=== PATIENT | female | born 1995 | race Caucasian/White ===

== ENCOUNTER 2016-12-03 18:57 | Emergency (ER) | payer OTHER ==
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
--- NOTE | 2016-12-03 20:01 | ED ORDER SUMMARY ---
..... Patient: JACKSON MARTE OrderSheet [facility] VisitID: [id number] [address] [place] [address] 21y, F Registration Date/Time: 12/03/2016 ORDER SHEET Weight: 165.5 kg (stated) Allergies: No Known Drug Allergy GENERAL ORDERS: MEDICATION ORDERS: Toradol IM 60 mg (NOW) (19:40 12/03/2016 HBivens A.R.N.P.) (Ack 19:40 HSoule) (19:52 HSoule) IV FLUIDS: ORDER SHEET NOTES: [Electronically signed by Shira DennyR.N.P. (22:28 12/03/2016)] [Electronically signed by Brando Mariano R.N. (23:37 12/03/2016)] [Electronically locked/signed by Brando Mariano R.N. (23:37 12/03/2016)]
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
--- NOTE | 2016-12-03 20:01 | ED ORDER SUMMARY ---
..... Patient: JACKSON MARTE OrderSheet [facility] VisitID: [id number] [address] [place] [address] 21y, F Registration Date/Time: 12/03/2016 ORDER SHEET Weight: 165.5 kg (stated) Allergies: No Known Drug Allergy GENERAL ORDERS: MEDICATION ORDERS: Toradol IM 60 mg (NOW) (19:40 12/03/2016 HBivens A.R.N.P.) (Ack 19:40 HSoule) (19:52 HSoule) IV FLUIDS: ORDER SHEET NOTES: [Electronically signed by Shira DennyR.N.P. (22:28 12/03/2016)] [Electronically signed by Brando Mariano R.N. (23:37 12/03/2016)] [Electronically locked/signed by Brando Mariano R.N. (23:37 12/03/2016)]
--- NOTE | 2016-12-03 23:37 | ED MAR SUMMARY ---
..... Medication Administration Record [facility] [address] [place] [address] Patient: JACKSON MARTE Visit ID: [id number] 21y, F Weight: 165.5 kg Height/Length: 65 in BMI: 60.8 ALLERGIES: No Known Drug Allergy Given 19:42 12/03/2016 Radha Roy, Medication Administered: TORADOL [IM] (KETOROLAC TROMETHAMINE), Dose: 60 mg IM. Medication Ordered: Toradol IM 60 mg (NOW).
--- NOTE | 2016-12-03 23:37 | ED MED RECONCILIATION SUMMARY ---
Patient: JACKSON MARTE Medication Reconciliation Report [facility] VisitID: [id number] [address] [place] [address] 21y, F Registration Date/Time: 12/03/2016 Weight: 165.5 kg Height/Length: 65 in. BMI: 60.8 ALLERGIES: No Known Drug Allergy The patient's Home Medications are listed below: THE FOLLOWING MEDICATIONS NEED TO BE RECONCILED: Adderall (10mg) Oral Gabapentin (PHN) Oral Tylenol Oral The source(s) of the original Home Medication information: Not obtained. The following Medications were given to the patient in the Emergency Department: Toradol [IM] IM 60 mg, administered: 12/03/2016 7:42:00 PM The following Medications were prescribed to the patient: Flexeril 10 mg: Take 1 orally every 8 hours as needed for muscle spasm. Dispense twenty (20). No refills. Substitution is permissible. -- Shira Denny A.R.N.P. Ultram 50 mg tablets: take 1-2 orally every 6 hours as needed for pain. Dispense twenty (20). No refills. Substitution is permissible. -- Shira Denny A.R.N.P.
--- NOTE | 2016-12-03 23:37 | ED MAR SUMMARY ---
..... Medication Administration Record [facility] [address] [place] [address] Patient: JACKSON MARTE Visit ID: [id number] 21y, F Weight: 165.5 kg Height/Length: 65 in BMI: 60.8 ALLERGIES: No Known Drug Allergy Given 19:42 12/03/2016 Radha Roy, Medication Administered: TORADOL [IM] (KETOROLAC TROMETHAMINE), Dose: 60 mg IM. Medication Ordered: Toradol IM 60 mg (NOW).
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
--- NOTE | 2016-12-03 23:37 | ED MED RECONCILIATION SUMMARY ---
Patient: JACKSON MARTE Medication Reconciliation Report [facility] VisitID: [id number] [address] [place] [address] 21y, F Registration Date/Time: 12/03/2016 Weight: 165.5 kg Height/Length: 65 in. BMI: 60.8 ALLERGIES: No Known Drug Allergy The patient's Home Medications are listed below: THE FOLLOWING MEDICATIONS NEED TO BE RECONCILED: Adderall (10mg) Oral Gabapentin (PHN) Oral Tylenol Oral The source(s) of the original Home Medication information: Not obtained. The following Medications were given to the patient in the Emergency Department: Toradol [IM] IM 60 mg, administered: 12/03/2016 7:42:00 PM The following Medications were prescribed to the patient: Flexeril 10 mg: Take 1 orally every 8 hours as needed for muscle spasm. Dispense twenty (20). No refills. Substitution is permissible. -- Shira Denny A.R.N.P. Ultram 50 mg tablets: take 1-2 orally every 6 hours as needed for pain. Dispense twenty (20). No refills. Substitution is permissible. -- Shira Denny A.R.N.P.
== END 2016-12-03 20:10 | disposition home or self-care (01) ==
LOC: ED SRH 18:57
DX: S16.1XXA Strain of muscle, fascia and tendon at neck level, initial encounter (principal); S39.012A Strain of muscle, fascia and tendon of lower back, initial encounter; V53.6XXA Passenger in pick-up truck or van injured in collision with car, pick-up truck or van in traffic accident, initial encounter; Y93.I9 Activity, other involving external motion; Y92.410 Unspecified street and highway as the place of occurrence of the external cause; Y99.9 Unspecified external cause status; K21.9 Gastro-esophageal reflux disease without esophagitis; F17.200 Nicotine dependence, unspecified, uncomplicated

== ENCOUNTER 2017-03-29 17:47 | Emergency (ER) | payer OTHER ==
--- NOTE | 2017-03-29 19:30 | ED CLINICAL REPORT ---
Clinical Report - Physicians/Mid Levels [facility] [address] [place] [address] 03/29/2017 17:48 [id number] Time Seen: 1800May 2016. Arrived- By private vehicle. Historian- patient. HISTORY OF PRESENT ILLNESS Chief Complaint: Injury to the right hand and index finger and right middle finger. The injury happened just prior to arrival. The patient sustained a crush injury. Patient is experiencing severe pain. Pain is not mild. Patient denies injury to the head. ( Patient sustained injury to the right hand from crushing injury between 2 metal bars. Denies prior injury to the area. Reports minor bleeding. Reports pain with any movement. No medications for respiratory arrival.). REVIEW OF SYSTEMS The patient sustained a laceration. She has had tingling, and numbness. All systems otherwise negative, except as recorded above. PAST HISTORY The patient's dominant hand is the right. She has not had a prior injury to the same area. Tetanus immunization status is unknown. SOCIAL HISTORY Smoker- current status unknown. Alcohol use. No drug use. ADDITIONAL NOTES The nursing notes have been reviewed. PHYSICAL EXAM Vital Signs: 03/29/2017 18:03 BP: 140/69. HR: 107. RR: 20. O2 saturation: 99%. Temp: 98.7 F. Appearance: Alert. Head: Head atraumatic. Respiratory: No respiratory distress. Breath sounds normal. Extremities: Dorsal right hand: tenderness and swelling (Central distal hand over the second and third MCP, extending into the proximal phalanx of the thid/ second, over the PIP, non-gaping puncture wound, non bleeding. Full range of motion of the index and middle finger with good strength.). No wrist injury. Neuro, Vascular and Tendons: Vascular status intact. Motor intact. Neuro: Oriented X 3. LABS, X-RAYS, AND EKG Rt Hand X-ray: (IMPRESSION: 1. Right index finger edema and laceration Electronically Final signed by:Chris Martell MD 03/29/2017 7:37:15 PM). PROGRESS AND PROCEDURES Digital Nerve Block - Finger: Time: 1815. Time-out completed immediately before the procedure. Digital nerve block performed on the right index finger. Web space approach utilized .0.5% Marcaine via two punctures using a 30-gauge needle. No complications encountered. Excellent anesthesia achieved. Course of Care: Patient with a small puncture wound, no need for laceration of such, good full range of motion no s Patient with good distal sensation. In addition no signs of fracture on x-ray. Stable for discharge, aluminum foam of the second digit for comfort only. Patient is stable. Patient/family counseled. Disposition: Discharged. Condition: good. CLINICAL IMPRESSION Single superficial abrasion to the right index finger. Crush injury to the left hand, left index finger and left middle finger. INSTRUCTIONS Apply ice. Protect wound and keep wound area clean. Apply bacitracin twice daily. Limit use of your hand. Prescription Medications: Hydrocodone/APAP 5mg / 325mg: take 1 orally every 6 hours as needed for pain. Dispense twelve (12). No refill. Motrin 800 mg tablets: take 1 tablet orally every 8 hours for 5 days, as needed for pain or swelling. Dispense fifteen (15). No refill. Substitution is permissible. Follow-up: Follow up with your doctor in four days as needed. Understanding of the discharge instructions verbalized by patient. (Electronically signed by Salud Harding P.A.-C 03/29/2017 20:14)
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
--- NOTE | 2017-03-29 19:30 | ED ORDER SUMMARY ---
..... Patient: JACKSON MARTE OrderSheet [facility] VisitID: [id number] [place] [address] 22y, F Registration Date/Time: 03/29/2017 ORDER SHEET Weight: 163.2 kg (stated) Allergies: No Known Drug Allergy GENERAL ORDERS: Hand 3 or 4V Right Urgent (18:06 03/29/2017 EKoroleva P.A.-C) (Ack 18:07 NHouse ER Tech1) (18:33 MCampbell) MEDICATION ORDERS: Tdap IM 0.5 mL (NOW, per protocol) (18:06 03/29/2017 EKoroleva P.A.-C) (Ack 18:08 SReitz R.N.) (18:17 SReitz R.N.) Bupivacaine Injection 0.5 % (soln) (NOW) (18:06 03/29/2017 EKoroleva P.A.-C) (Ack 18:08 SReitz R.N.) (18:18 SReitz R.N.) Percocet PO 5/325 mg (HIGH ALERT MEDICATION, NOW) (18:06 03/29/2017 EKoroleva P.A.-C) (Ack 18:08 SReitz R.N.) (18:17 SReitz R.N.) IV FLUIDS: ORDER SHEET NOTES: [Electronically signed by Aubree Edward R.N. (20:04 03/29/2017)] [Electronically signed by Aubree Edward R.N. (20:05 03/29/2017)] [Electronically signed by Salud Harding.A.-C (20:14 03/29/2017)] [Electronically locked/signed by Aubree Edward R.N. (20:04 03/29/2017)]
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
--- NOTE | 2017-03-29 19:30 | ED ORDER SUMMARY ---
..... Patient: JACKSON MARTE OrderSheet [facility] VisitID: [id number] [place] [address] 22y, F Registration Date/Time: 03/29/2017 ORDER SHEET Weight: 163.2 kg (stated) Allergies: No Known Drug Allergy GENERAL ORDERS: Hand 3 or 4V Right Urgent (18:06 03/29/2017 EKoroleva P.A.-C) (Ack 18:07 NHouse ER Tech1) (18:33 MCampbell) MEDICATION ORDERS: Tdap IM 0.5 mL (NOW, per protocol) (18:06 03/29/2017 EKoroleva P.A.-C) (Ack 18:08 SReitz R.N.) (18:17 SReitz R.N.) Bupivacaine Injection 0.5 % (soln) (NOW) (18:06 03/29/2017 EKoroleva P.A.-C) (Ack 18:08 SReitz R.N.) (18:18 SReitz R.N.) Percocet PO 5/325 mg (HIGH ALERT MEDICATION, NOW) (18:06 03/29/2017 EKoroleva P.A.-C) (Ack 18:08 SReitz R.N.) (18:17 SReitz R.N.) IV FLUIDS: ORDER SHEET NOTES: [Electronically signed by Aubree Edward R.N. (20:04 03/29/2017)] [Electronically signed by Aubree Edward R.N. (20:05 03/29/2017)] [Electronically signed by Salud Harding.A.-C (20:14 03/29/2017)] [Electronically locked/signed by Aubree Edward R.N. (20:04 03/29/2017)]
--- NOTE | 2017-03-29 19:37 | DIAGNOSTIC IMAGING REPORT ---
PROCEDURE: XR HAND 3 OR 4 VIEWS - RIGHT INDICATION: TRAUMA/INJURY TECHNIQUE: Four views. COMPARISON: None. FINDINGS: Right index soft tissue swelling and laceration. No radiopaque foreign body, fracture or dislocation. IMPRESSION: 1. Right index finger edema and laceration
--- NOTE | 2017-03-29 20:14 | ED MED RECONCILIATION SUMMARY ---
Patient: JACKSON MARTE Medication Reconciliation Report [facility] VisitID: [id number] [place] [address] 22y, F Registration Date/Time: 03/29/2017 Weight: 163.2 kg Height/Length: 66 in. BMI: 58.1 ALLERGIES: No Known Drug Allergy The patient's Home Medications are listed below: THE FOLLOWING MEDICATIONS NEED TO BE RECONCILED: Adderall (10mg) Oral Gabapentin (PHN) Oral Tylenol Oral The source(s) of the original Home Medication information: Not obtained. The following Medications were given to the patient in the Emergency Department: TDAP [IM] IM 0.5 mL, administered: 03/29/2017 6:15:00 PM Percocet [PO] PO 1 tab, administered: 03/29/2017 6:16:00 PM Bupivacaine [Injection] Injection 0.5 %, administered: 03/29/2017 6:16:00 PM The following Medications were prescribed to the patient: Hydrocodone/APAP 5mg / 325mg: take 1 orally every 6 hours as needed for pain. Dispense twelve (12). No refill. -- Salud Harding, P.ADarwin-Bill Motrin 800 mg tablets: take 1 tablet orally every 8 hours for 5 days, as needed for pain or swelling. Dispense fifteen (15). No refill. Substitution is permissible. -- Salud Harding P.A.-C
--- NOTE | 2017-03-29 20:14 | ED MAR SUMMARY ---
..... Medication Administration Record [facility] [address] [place] [address] Patient: JACKSON MARTE Visit ID: [id number] 22y, F Weight: 163.2 kg Height/Length: 66 in BMI: 58.1 ALLERGIES: No Known Drug Allergy Given 18:15 03/29/2017 Shira Armando RDarwinNDarwin Medication Administered: TDAP [IM], Dose: 0.5 mL IM. Medication Ordered: Tdap IM 0.5 mL (NOW, per protocol). Given 18:16 03/29/2017 Shira Armando R.NDarwin Medication Administered: BUPIVACAINE [INJECTION], Dose: 0.5 % Injection. Medication Ordered: Bupivacaine Injection 0.5 % (soln) (NOW). Given 18:16 03/29/2017 Shira Armando RDarwinNDarwin Medication Administered: PERCOCET [PO] (OXYCODONE-ACETAMINOPHEN), Dose: 1 tab 5/325 mg Tablets PO. Medication Ordered: Percocet PO 5/325 mg (HIGH ALERT MEDICATION, NOW).
--- NOTE | 2017-03-29 20:14 | ED MAR SUMMARY ---
..... Medication Administration Record [facility] [address] [place] [address] Patient: JACKSON MARTE Visit ID: [id number] 22y, F Weight: 163.2 kg Height/Length: 66 in BMI: 58.1 ALLERGIES: No Known Drug Allergy Given 18:15 03/29/2017 Shira Armando RDarwinNDarwin Medication Administered: TDAP [IM], Dose: 0.5 mL IM. Medication Ordered: Tdap IM 0.5 mL (NOW, per protocol). Given 18:16 03/29/2017 Shira Armando R.NDarwin Medication Administered: BUPIVACAINE [INJECTION], Dose: 0.5 % Injection. Medication Ordered: Bupivacaine Injection 0.5 % (soln) (NOW). Given 18:16 03/29/2017 Shira Armando RDarwinNDarwin Medication Administered: PERCOCET [PO] (OXYCODONE-ACETAMINOPHEN), Dose: 1 tab 5/325 mg Tablets PO. Medication Ordered: Percocet PO 5/325 mg (HIGH ALERT MEDICATION, NOW).
--- NOTE | 2017-03-29 20:14 | ED DISCHARGE INSTRUCTIONS ---
Patient: JACKSON MARTE General Instructions [facility] VisitID: [id number] [place] [address] 22y, F Registration Date/Time: 03/29/2017 Single superficial abrasion to the right index finger. Crush injury to the left hand, left index finger and left middle finger. INSTRUCTIONS Apply ice. Protect wound and keep wound area clean. Apply bacitracin twice daily. Limit use of your hand. Prescription Medications: Hydrocodone/APAP 5mg / 325mg: take 1 orally every 6 hours as needed for pain. Dispense twelve (12). No refill. Motrin 800 mg tablets: take 1 tablet orally every 8 hours for 5 days, as needed for pain or swelling. Dispense fifteen (15). No refill. Substitution is permissible. Follow-up: Follow up with your doctor in four days as needed. Understanding of the discharge instructions verbalized by patient. ADDITIONAL INFORMATION Abrasions Abrasions are skin scrapes. Their treatment depends on how large and deep the abrasion is. Home Care: If you were given a bandage, change it once a day. If your bandage sticks to the wound, soak it in warm water until it loosens. Wash the area with soap and water to remove all the cream/ointment. You may do this in a sink, under a tub faucet or shower. Rinse off the soap and pat dry with a clean towel. Reapply cream/ointment according to your doctor's instructions. This will prevent infection and help prevent the bandage from sticking. Cover the wound with a fresh non-stick bandage (Telfa). Repeat steps 1 to 4 daily, or as directed by your doctor. If the bandage becomes wet or dirty, change it as soon as possible. You may use acetaminophen (Tylenol) or ibuprofen (Motrin, Advil) to control pain, unless another pain medicine was prescribed. [ NOTE : If you have chronic liver or kidney disease or ever had a stomach ulcer or GI bleeding, talk with your doctor before using these medicines.] Do not use ibuprofen in children under six months of age. Follow Up with your physician or this facility as directed by our staff. Most skin wounds heal within ten days. However, an infection may occur despite proper treatment. Therefore, look for the early signs of infection listed below. Get Prompt Medical Attention if any of the following occur: Increasing pain in the wound Increasing redness or swelling Pus coming from the wound Fever of 100.4F (38C) or higher, or as directed by your healthcare provider Crush Injury: Hand [No Fx] You have a CRUSH INJURY of your HAND. This causes local pain, swelling and sometimes bruising. There are no broken bones. This injury may take from a few days to a few weeks to heal. If the FINGERNAIL has been severely injured, it may fall off in 1-2 weeks. A new one will usually start to grow back within a month. Home Care: Keep your hand elevated to reduce pain and swelling. When sitting or lying down elevate your arm above the level of your heart. You can do this by placing your arm on a pillow that rests on your chest or on a pillow at your side. This is most important during the first 48 hours after injury. Apply an ice pack (ice cubes in a plastic bag, wrapped in a towel) over the injured area for 20 minutes every 1-2 hours the first day for pain relief. Continue this 3-4 times a day until the pain and swelling goes away. You may use acetaminophen (Tylenol) or ibuprofen (Motrin, Advil) to control pain, unless another pain medicine was prescribed. [ NOTE : If you have chronic liver or kidney disease or ever had a stomach ulcer or GI bleeding, talk with your doctor before using these medicines.] Keep the splint/cast dry at all times. Bathe with your splint/cast well out of the water, protected with a large plastic bag, rubber-banded at the top end. If a fiberglass cast or splint gets wet, you can dry it with a hair-dryer. Follow Up with your doctor as advised if you are not starting to improve within the next THREE days. [NOTE: If X-rays were taken, they will be reviewed by a radiologist. You will be notified of any new findings that may affect your care.] Get Prompt Medical Attention if any of the following occur: The plaster cast or splint becomes wet or soft The fiberglass cast or splint remains wet for more than 24 hours Increased tightness or pain under the cast or splint Fingers become swollen, cold, blue, numb or tingly Redness, warmth, swelling, drainage from the wound, or foul odor from a cast or splint Fever of 100.4F(38C) or higher, or as directed by your healthcare provider Hydrocodone Bitartrate, Acetaminophen Oral tablet What is this medicine? ACETAMINOPHEN; HYDROCODONE (a set a OSCAR myranda fen; royce droe KOE done) is a pain reliever. It is used to treat mild to moderate pain. How should I use this medicine? Take this medicine by mouth. Swallow it with a full glass of water. Follow the directions on the prescription label. If the medicine upsets your stomach, take the medicine with food or milk. Do not take more than you are told to take. Talk to your obiee lead developer regarding the use of this medicine in children. This medicine is not approved for use in children. What side effects may I notice from receiving this medicine? Side effects that you should report to your doctor or health career information specialist as soon as possible: allergic reactions like skin rash, itching or hives, swelling of the face, lips, or tongue breathing problems confusion feeling faint or lightheaded, falls stomach pain yellowing of the eyes or skin Side effects that usually do not require medical attention (report to your doctor or health career information specialist if they continue or are bothersome): nausea, vomiting stomach upset What may interact with this medicine? alcohol antihistamines isoniazid medicines for depression, anxiety, or psychotic disturbances medicines for sleep muscle relaxants naltrexone narcotic medicines (opiates) for pain phenobarbital ritonavir tramadol What if I miss a dose? If you miss a dose, take it as soon as you can. If it is almost time for your next dose, take only that dose. Do not take double or extra doses. Where should I keep my medicine? Keep out of the reach of children. This medicine can be abused. Keep your medicine in a safe place to protect it from theft. Do not share this medicine with anyone. Selling or giving away this medicine is dangerous and against the law. Store at room temperature between 15 and 30 degrees C (59 and 86 degrees F). Protect from light. Keep container tightly closed. Throw away any unused medicine after the expiration date. Discard unused medicine and used packaging carefully. Pets and children can be harmed if they find used or lost packages. What should I tell my health care provider before I take this medicine? They need to know if you have any of these conditions: brain tumor Crohn's disease, inflammatory bowel disease, or ulcerative colitis drink more than 3 alcohol-containing drinks per day drug abuse or addiction head injury heart or circulation problems kidney disease or problems going to the bathroom liver disease lung disease, asthma, or breathing problems an unusual or allergic reaction to acetaminophen, hydrocodone, other opioid analgesics, other medicines, foods, dyes, or preservatives or trying to get breast-feeding What should I watch for while using this medicine? Tell your doctor or health career information specialist if your pain does not go away, if it gets worse, or if you have new or a different type of pain. You may develop tolerance to the medicine. Tolerance means that you will need a higher dose of the medicine for pain relief. Tolerance is normal and is expected if you take the medicine for a long time. Do not suddenly stop taking your medicine because you may develop a severe reaction. Your body becomes used to the medicine. This does NOT mean you are addicted. Addiction is a behavior related to getting and using a drug for a non-medical reason. If you have pain, you have a medical reason to take pain medicine. Your doctor will tell you how much medicine to take. If your doctor wants you to stop the medicine, the dose will be slowly lowered over time to avoid any side effects. You may get drowsy or dizzy when you first start taking the medicine or change doses. Do not drive, use machinery, or do anything that may be dangerous until you know how the medicine affects you. Stand or sit up slowly. There are different types of narcotic medicines (opiates) for pain. If you take more than one type at the same time, you may have more side effects. Give your health care provider a list of all medicines you use. Your doctor will tell you how much medicine to take. Do not take more medicine than directed. Call emergency for help if you have problems breathing. The medicine will cause constipation. Try to have a bowel movement at least every 2 to 3 days. If you do not have a bowel movement for 3 days, call your doctor or health career information specialist. Too much acetaminophen can be very dangerous. Do not take Tylenol (acetaminophen) or medicines that contain acetaminophen with this medicine. Many non-prescription medicines contain acetaminophen. Always read the labels carefully. Ibuprofen Oral tablet What is this medicine? IBUPROFEN (eye BYOO proe fen) is a non-steroidal anti-inflammatory drug (NSAID). It is used for dental pain, fever, headaches or migraines, osteoarthritis, rheumatoid arthritis, or painful monthly periods. It can also relieve minor aches and pains caused by a cold, flu, or sore throat. How should I use this medicine? Take this medicine by mouth with a glass of water. Follow the directions on the prescription label. Take this medicine with food if your stomach gets upset. Try to not lie down for at least 10 minutes after you take the medicine. Take your medicine at regular intervals. Do not take your medicine more often than directed. A special MedGuide will be given to you by the pharmacist with each prescription and refill. Be sure to read this information carefully each time. Talk to your obiee lead developer regarding the use of this medicine in children. Special care may be needed. What side effects may I notice from receiving this medicine? Side effects that you should report to your doctor or health career information specialist as soon as possible: allergic reactions like skin rash, itching or hives, swelling of the face, lips, or tongue black or bloody stools, blood in the urine or in vomit breathing problems changes in vision chest pain general ill feeling or flu-like symptoms nausea or vomiting redness, blistering, peeling or loosening of the skin, including inside the mouth slurred speech or weakness on one side of the body stomach pain unexplained weight gain or swelling unusually weak or tired yellowing of eyes or skin Side effects that usually do not require medical attention (report to your doctor or health career information specialist if they continue or are bothersome): constipation or diarrhea dizziness gas or heartburn stomach upset What may interact with this medicine? Do not take this medicine with any of the following medications: cidofovir ketorolac methotrexate pemetrexed This medicine may also interact with the following medications: alcohol aspirin diuretics lithium other drugs for inflammation like prednisone warfarin What if I miss a dose? If you miss a dose, take it as soon as you can. If it is almost time for your next dose, take only that dose. Do not take double or extra doses. Where should I keep my medicine? Keep out of the reach of children. Store at room temperature between 15 and 30 degrees C (59 and 86 degrees F). Keep container tightly closed. Throw away any unused medicine after the expiration date. What should I tell my health care provider before I take this medicine? They need to know if you have any of these conditions: asthma cigarette smoker drink more than 3 alcohol containing drinks a day heart disease or circulation problems such as heart failure or leg edema (fluid retention) high blood pressure kidney disease liver disease stomach bleeding or ulcers an unusual or allergic reaction to ibuprofen, aspirin, other NSAIDS, other medicines, foods, dyes, or preservatives or trying to get breast-feeding What should I watch for while using this medicine? Tell your doctor or healthcare professional if your symptoms do not start to get better or if they get worse. This medicine does not prevent heart attack or stroke. In fact, this medicine may increase the chance of a heart attack or stroke. The chance may increase with longer use of this medicine and in people who have heart disease. If you take aspirin to prevent heart attack or stroke, talk with your doctor or health career information specialist. Do not take other medicines that contain aspirin, ibuprofen, or naproxen with this medicine. Side effects such as stomach upset, nausea, or ulcers may be more likely to occur. Many medicines available without a prescription should not be taken with this medicine. This medicine can cause ulcers and bleeding in the stomach and intestines at any time during treatment. Ulcers and bleeding can happen without warning symptoms and can cause . To reduce your risk, do not smoke cigarettes or drink alcohol while you are taking this medicine. You may get drowsy or dizzy. Do not drive, use machinery, or do anything that needs mental alertness until you know how this medicine affects you. Do not stand or sit up quickly, especially if you are an older patient. This reduces the risk of dizzy or fainting spells. This medicine can cause you to bleed more easily. Try to avoid damage to your teeth and gums when you brush or floss your teeth. You have been given the following additional information: Abrasion Crush Injury, Hand/Finger Hydrocodone Bitartrate, Acetaminophen Oral tablet Ibuprofen Oral tablet Limit use of your hand. (Electronically signed by Salud Harding P.A.-C 03/29/2017 20:14)
--- NOTE | 2017-03-29 20:14 | ED MED RECONCILIATION SUMMARY ---
Patient: JACKSON MARTE Medication Reconciliation Report [facility] VisitID: [id number] [place] [address] 22y, F Registration Date/Time: 03/29/2017 Weight: 163.2 kg Height/Length: 66 in. BMI: 58.1 ALLERGIES: No Known Drug Allergy The patient's Home Medications are listed below: THE FOLLOWING MEDICATIONS NEED TO BE RECONCILED: Adderall (10mg) Oral Gabapentin (PHN) Oral Tylenol Oral The source(s) of the original Home Medication information: Not obtained. The following Medications were given to the patient in the Emergency Department: TDAP [IM] IM 0.5 mL, administered: 03/29/2017 6:15:00 PM Percocet [PO] PO 1 tab, administered: 03/29/2017 6:16:00 PM Bupivacaine [Injection] Injection 0.5 %, administered: 03/29/2017 6:16:00 PM The following Medications were prescribed to the patient: Hydrocodone/APAP 5mg / 325mg: take 1 orally every 6 hours as needed for pain. Dispense twelve (12). No refill. -- Salud Harding, P.ADarwin-Bill Motrin 800 mg tablets: take 1 tablet orally every 8 hours for 5 days, as needed for pain or swelling. Dispense fifteen (15). No refill. Substitution is permissible. -- Salud Harding P.A.-C
== END 2017-03-29 19:53 | disposition home or self-care (01) ==
LOC: ED SRH 17:47
DX: S67.190A Crushing injury of right index finger, initial encounter (principal); S67.21XA Crushing injury of right hand, initial encounter; S67.192A Crushing injury of right middle finger, initial encounter; S60.410A Abrasion of right index finger, initial encounter; W23.0XXA Caught, crushed, jammed, or pinched between moving objects, initial encounter; Y93.9 Activity, unspecified; Y92.9 Unspecified place or not applicable; Y99.9 Unspecified external cause status; Z23 Encounter for immunization; K21.9 Gastro-esophageal reflux disease without esophagitis